=== PATIENT | male | born 1960 | race Caucasian/White ===

== ENCOUNTER 2024-03-28 21:26 | Inpatient (IN) | payer BC, SELFPAY ==
[2024-03-28 18:00] VITALS: BP 180/102
[2024-03-28 18:35] VITALS: BMI 28.8
--- NOTE | 2024-03-28 18:39 | ED.GENMED ---
History of Present Illness
General
Chief Complaint: Chest Pain
Source: patient
Exam Limitations: none
Time Seen by Provider: 03/28/24 18:15
History of Present Illness
History of Present Illness:
This is a 63 year old male that comes in with c/o chest pain. States that yesterday he was out doing yard work and he had chest pain. States that he thought it was from this as it went away. Then today at work he tried to push it a little to see if
anything would happen and nothing happened. Then he went home and he wasn't doing anything but he started with chest pain around 4:30-4:45pm. States that this lasted about 30min and is gone. States that there was no radiation it was just in the
center of his chest. States that his BP was also elevated at 170/100 as he flushed so he checked his BP. Denies any fever, chills, SOB, abd pain, nausea, vomiting, diarrhea, headache, dizziness, urinary burning.
Past History
Past History
ED Past Medical History: HTN; Negative Asthma, Hypercholesterolemia or NIDDM
ED Past Surgical History: None
Social History
Tobacco: Non-smoker
Alcohol: Occasional
Personal:
Living: with family
Review of Systems
Review of Systems
All Other Systems: ROS reviewed and negative except as documented in HPI and ROS
Constitutional: Reports no symptoms; Denies fever or chills
EENT: Reports no symptoms
Respiratory: Reports no symptoms; Denies cough or trouble breathing
Cardiac: Reports no symptoms; Denies chest pain
ABD/GI: Reports no symptoms; Denies abdominal pain, nausea, vomiting or diarrhea
: Reports no symptoms
Musculoskeletal: Reports no symptoms
Skin: Reports no symptoms
Neurological: Reports no symptoms; Denies dizzy or headache
Psychiatric: Reports no symptoms
Phy Exam
General Physical Exam
General Presentation: well appearing and no apparent distress
General age: appears stated age
General Skin: warm and dry
General Habitus: normal
General Mental: alert
General Hydration: appears well hydrated
ENT Exam
ENT Exam: TM's normal, pharynx normal and neck supple
Eye Exam
Eye Exam: EOMI
Cardiovascular Exam
Cardiovascular Exam: regular rate/rhythm, no edema, no murmur and normal peripheral pulses
Pulmonary Exam
Pulmonary Exam: lungs clear, no respiratory distress, no rales, chest non tender, no crackles, no rhonchi, no wheezing and no cough
Gastrointestinal Exam
Gastrointestinal Exam: normal bowel sounds, non tender, soft, no organomegaly, no pulsatile mass and non distended
Musculoskeletal Exam
Musculoskeletal Exam: full ROM and no edema
Skin Exam
Skin Exam: normal color, warm/dry, no rash and no petechia
Psychiatric Exam
Psychiatric Exam: normal mood/affect
Scores
Heart Score for Chest Pain Patients
STEMI patient?: No
History: Moderately Suspicious
ECG: Significant ST-Depression
Age: >45 - <65 years
Risk Factors: 1 or 2 Risk Factors
Troponin: >/= 3 x Normal Limit
Heart Score for Chest Pain Patients: 7
Heart Score Risk: 72.7 % MACE over next 6 weeks
Course
Orders/Labs/Results
Orders:
Orders
03/28/24 17:56
Electrocardiogram (*1) Urgent
Reason for Study: Chest Pain
EKG- Treatment ONCE
03/28/24 18:04
Electrocardiogram (*1) Urgent
Reason for Study: Chest Pain
03/28/24 18:05
EKG- Treatment ONCE
03/28/24 18:36
Complete Blood Count/With Diff Urgent
Comprehensive Metabolic Panel Urgent
Troponin I Urgent
03/28/24 18:39
Pantoprazole [Protonix IV] 40 mg IV NOW STA
CR Chest - 2 Views Urgent
Comment:
Reason For Exam: Chest pain
03/28/24 18:46
EKG- Treatment ONCE
03/28/24 21:14
Admit/Transfer Patient As Directed
Co-Sign Provider:
Level of Care: Inpatient admission
Assign to:: IVU
Physician / Group: júnior
Diagnosis: NSTEMI
Reason for Hospitalization: NSTEMI
Expected length of stay greater than two midnights?: Yes
ELOS- Estimated Length of Stay in days: 2
I certify the patient meets the requirements for IP care: Yes
Code Status As Directed
Resuscitation Status: Full Code
PRN Pain Medication Management As Directed
May give lesser potent ordered pain med per pt: Yes
preference::
Protocol:: Medication orders for pain may be administered in a
manner that supports deferring to patient preference
when the pt is:
- Requesting an ordered lesser potent pain medication.
Least to most potent pain medications are defined
as: acetaminophen < NSAID < tramadol < opioids
(morphine, oxycodone, hydromorphone).
- Requesting a lesser dose of the same medication IF
ORDERED.
- Requesting a less intrusive route of administration
if both routes are prescribed by the provider (PO <
IV).
03/28/24 21:17
Heparin 4,000 units IV NOW STA
Heparin Protocol- PTT Orders As Directed
PTT per Heparin protocol: -Obtain CBC and baseline PTT - if not already collected.
-Obtain PTT 6 hours from start of infusion. Then, every 6 hours until 2 consecutive
PTT's are therapeutic. Then, PTT Daily.
-With each rate change, obtain PTT every 6 hours until 2 consecutive PTT's are
therapeutic. Then, PTT Daily.
Notify MD As Directed
Notify physician if: PTT is greater than or equal to 200.
03/28/24 21:30
Heparin 13253 Units/250 ml 25,000 units in 250 ml IV PER PROTOCOL
Weight to be used for heparin protocol in kilograms (kg):: 83.461
Protocol:: Cardiac Tx/Acute Coronary
PTT Goal Range to be used:: PTT 73 to 111 seconds
Order type:: Initial
INITIAL Infusion Dose (UNITS/KG/hr) & then follow protocol:: 15 units/kg/hr
Infusion Dose in UNITS/hr & then follow protocol (UNITS/hr):: 1,250
INFUSION RATE in mL/hr & then follow protocol (mL/hr):: 12.5
PTT less than or equal to 64 seconds:: Increase rate by 200 units/hr (+ 2 mL/hr)
PTT 64.1 to 72.9 seconds:: Increase rate by 100 units/hr (+ 1 mL/hr)
PTT 73 to 111 seconds:: Target Range. No change in rate.
PTT 111.1 to 130.9 seconds:: Decrease rate by 100 units/hr (- 1 mL/hr)
PTT 131 to 199.9 seconds:: HOLD for 1 hr. Then decrease rate by 200 units/hr (- 2 mL/hr)
PTT greater than or equal to 200 seconds:: HOLD for 2 hrs & Notify Provider. Then decrease by 200 units/hr (-
2 mL/hr)
Lab follow-up:: Each change, PTT q6h until 2 consecutive are therapeutic. Then PTT
daily.
03/28/24 21:35
Electrocardiogram (*1) Urgent
Reason for Study: Chest Pain
03/28/24 21:36
Complete Blood Count/No Diff Urgent
Comment: Obtain baseline before beginning heparin infusion if not already collected
PTT Urgent
Comment: Obtain baseline before beginning heparin infusion if not already collected
Troponin I Urgent
03/30/24 06:00
Complete Blood Count/No Diff Q2D
Comment: Notify MD if platelet count is <130,000 or decreases by 50% from baseline
04/01/24 06:00
Complete Blood Count/No Diff Q2D
Comment: Notify MD if platelet count is <130,000 or decreases by 50% from baseline
04/03/24 06:00
Complete Blood Count/No Diff Q2D
Comment: Notify MD if platelet count is <130,000 or decreases by 50% from baseline
04/05/24 06:00
Complete Blood Count/No Diff Q2D
Comment: Notify MD if platelet count is <130,000 or decreases by 50% from baseline
04/07/24 06:00
Complete Blood Count/No Diff Q2D
Comment: Notify MD if platelet count is <130,000 or decreases by 50% from baseline
04/09/24 06:00
Complete Blood Count/No Diff Q2D
Comment: Notify MD if platelet count is <130,000 or decreases by 50% from baseline
04/11/24 06:00
Complete Blood Count/No Diff Q2D
Comment: Notify MD if platelet count is <130,000 or decreases by 50% from baseline
04/13/24 06:00
Complete Blood Count/No Diff Q2D
Comment: Notify MD if platelet count is <130,000 or decreases by 50% from baseline
Abnormal Lab Results
03/28/24
18:36
MPV 11.7 H fL
(7.4-10.4)
Glucose 119 H mg/dl
(70-99)
Troponin I 0.531 H* ng/ml
03/28/24 18:36
03/28/24 18:36
Hyperglycemia, Troponin 0.531
Vital Signs
Initial and Last Documented VS:
Initial Vital Signs
Temp Pulse Resp BP Pulse Ox
98.0 F 80 18 180/102 99
03/28/24 18:00 03/28/24 18:00 03/28/24 18:00 03/28/24 18:00 03/28/24 18:00
Last Documented Vital Signs
Temp Pulse Resp BP Pulse Ox
98.0 F 64 19 159/88 98
03/28/24 18:00 03/28/24 20:00 03/28/24 20:00 03/28/24 19:23 03/28/24 20:00
MDM/Problems Addressed
Differential Diagnosis Includes:
GERD, Coronary syndrome, Musculoskeletal
MDM/Problems Addressed:
This is a 63 year old male that comes in with c/o chest pain. States that he had chest pain after doing yard work yesterday that went away and then it started tonight after he got home and wasn't doing anything
will check labs, Chest x-ray.
Back into see patient. Explained that his Troponin is elevated. Patient will be admitted. Hospitalist notified. Patient remains pain free at this time.
Repeat ECG: Rate 66, NSR, Normal axis. Normal QRS, Negative for ischemia. Checked by Dr. Montgomery.
Chronic conditions affecting care:
NA
Acute Exacerbation and/or Progression of Chronic Illness:
NA
*Radiology
Radiology exam reviewed: preliminary read by ED provider (Chest-Negative for active disease)
*Pulse Oximetry
Patient hypoxic: no
*EKG
Interpreted by ED Provider?: Yes
Heart Rate: 71
Rate: normal
Rhythm: sinus
[place]: normal axis
Interval: normal interval
QRS Pattern: normal QRS
Ischemia: non-specific ST changes (V3, V4, V5, V6)
*Deputy Jailer Interpretation
Rate: normal
Heart Rate: 72
Rhythm: sinus
*Critical Care Note
Total Time (30-74mins, 75-104mins- exclusive of procedures): Not Applicable
ED Attending Note
-
Portions of this chart may have been created with voice recognition software.� Occasional wrong word or��sound alike� substitutions may have occurred due to the inherent limitations of voice recognition software.
Discharge Plan
Departure
Patient Disposition: Admit
Date of Disposition: 03/28/24
Time of Disposition: 20:28
Admit to: Telemetry
Presentation/result/management discussed w/ accepting MD/DO: Hospitalist
Patient with high blood pressure during this ER visit?: Yes
Condition: Good
Covid-19: Not Applicable
Discharge Problem:
Chest pain, Elevated troponin
Interventions
Interventions:
*Risk Screen - Suicide Last Done: 03/28/24 18:02
*General Assessment Last Done: 03/28/24 18:02
*Neglect/Abuse Screening Last Done: 03/28/24 18:02
*ED COVID-19 Vaccine History Last Done: 03/28/24 18:39
ED- Cardiac Assessment Last Done: 03/28/24 18:38
[2024-03-28 18:49] LABS: % Basophils 0.7 % (0-2); % Eosinophils 1.2 % (0-6); % Immature Granulocytes 0.4 % (0-0.5); % Lymphocytes 21.2 % (20.5-51.1); % Monocytes 8.6 % (1.7-9.3); % Neutrophils 67.9 % (42.2-75.2); Absolute Basophils 0.1 10^3/uL (0-0.2); Absolute Eosinophils 0.1 10^3/uL (0-0.7); Absolute Lymphocytes 1.5 10^3/uL (1.2-3.4); Absolute Monocytes 0.6 10^3/uL (0.1-0.6); Absolute Neutrophils 4.7 10^3/uL (1.4-6.5); Hematocrit 42.3 % (39.0-52.0); Hemoglobin 14.5 g/dL (13.0-18.0); Mean Corp Hgb Conc. 34.3 g/dL (33.0-37.0); Mean Corpuscular Volume 87.6 fL (80.0-94.0); Mean Platelet Volume 11.7 fL (7.4-10.4); Nucleated Red Blood Cells % 0 % (-); Platelet Count 132 10^3/uL (130-400); Red Blood Cell Count 4.83 10^6/uL (4.70-6.10); Red Cell Dist. Width 13.1 % (11.5-14.5); White Blood Cell Count 6.9 10^3/uL (4.8-10.8)
[2024-03-28 18:59] LABS: ALT (SGPT) 27 U/L (0-50); AST (SGOT) 35 U/L (17-59); Albumin 4.8 g/dl (3.5-5.0); Alkaline Phosphatase 55 U/L (38-126); Blood Urea Nitrogen 17 mg/dl (9-20); Calcium 9.6 mg/dl (8.4-10.2); Carbon Dioxide 28 mmol/L (22-30); Chloride 101 mmol/L (98-107); Estimated Creatinine Clearance 87 ml/min; Glucose 119 mg/dl (70-99); Sodium 142 mmol/L (135-145); Total Bilirubin 0.8 mg/dl (0.2-1.3); Total Protein 7.4 g/dl (6.3-8.2); eGFR > 60.00
[2024-03-28 19:12] LABS: Troponin I 0.531 ng/ml
[2024-03-28] MEDS: PROTONIX IV 40 MG IV (19:13)
[2024-03-28 19:23] VITALS: BP 159/88
--- NOTE | 2024-03-28 21:23 | HPS.HSE ---
Addendum entered and electronically signed by Pilar Rivera MD 03/28/24 21:26:
EKG shows nonspecific lateral ST-T wave changes. Chest x-ray pending.
Original Note:
Family Physician
-
Family Physician: James Hwang
Chief Complaint
-
chest pain
History of Present Illness
63-year-old male past medical history of hypertension presenting with chest pain. He was out doing yard work and developed chest pain described as aching after he finished which later resolved. He went home and started having chest pain again
around 4:30 PM. This lasted 30 minutes and resolved. He denies any radiation of the pain. Blood pressure is elevated 170/100. Denies any fevers or chills, shortness of breath, abdominal pain, nausea vomiting, diarrhea, headache, dizziness or
urinary symptoms, or sweating.
His blood pressure is normally controlled.
He denies any cardiac history.
He drinks alcohol occasionally. He denies smoking.
His sister had lupus and had a heart attack. His mother had A-fib.
Medical History
Past Medical History
Past Medical History: Reports Other (hypertension)
Past Surgical History: Reports None
Social History
Tobacco: Non-smoker
Alcohol: Occasional
Drug: None
Family History
Family History: Other (His sister had lupus and had a heart attack. His mother had A-fib.)
Allergies / Home Medications
Allergies reflects when Allergies were last updated in 591wed.
Home Medications with original date entered in 591wed
Allergy/Medication List:
Allergies
Allergy/AdvReac Type Severity Reaction Status Date / Time
cephalexin [From Keflex] Allergy Rash Verified 03/28/24 18:02
Home Medications
celecoxib 100 mg capsule 100 mg PO DAILY 03/28/24
losartan 100 mg tablet 100 mg PO DAILY 03/28/24
Review of Systems
-
History Source: Patient
A 12 point ROS was completed and negative except as noted: Yes
Constitutional: Reports No Symptoms
EENT: Reports No Symptoms
Respiratory: Reports No Symptoms
Cardiac: Reports See HPI
Abdomen/GI: Reports No Symptoms
: Reports No Symptoms
Musculoskeletal: Reports No Symptoms
Skin: Reports No Symptoms
Neurological: Reports No Symptoms
Endocrine: Reports No Symptoms
Hematologic/Lymphatic: Reports No Symptoms
Psych: Reports No Symptoms
Physical Exam
Vital Signs
Vital Signs
Temp Pulse Resp BP Pulse Ox
98.0 F 64 19 159/88 98
03/28/24 18:00 03/28/24 20:00 03/28/24 20:00 03/28/24 19:23 03/28/24 20:00
Physical Exam
General: Well Developed, Well Nourished and No Apparent Distress
HEENT: NormoCephalic, Moist mucous membranes and Atraumatic
Respiratory: Clear
Cardiac: S1/S2 and Regular Rhythm; No Murmur or Rub
GI: Soft, Non Tender, Non Distended and Normal Bowel Sounds; No Organomegaly
Rectal: Deferred by Provider
Musculoskeletal: No Clubbing, No Cyanosis and No Edema
Skin: No Rash
Neuro: Nonfocal/grossly intact
Laboratory Results
-
03/28/24 18:36
Laboratory Results
Total Bilirubin 0.8 mg/dl (0.2-1.3) 03/28/24 18:36
AST 35 U/L (17-59) 03/28/24 18:36
ALT 27 U/L (0-50) 03/28/24 18:36
Alkaline Phosphatase 55 U/L (38-126) 03/28/24 18:36
Troponin I 0.531 ng/ml H* 03/28/24 18:36
Data Reviewed
-
Lab Data: Labs Reviewed by me
Old Records: Reviewed
Impression/Plan
-
IMPRESSION:
PLAN:
# NSTEMI
# Hypertensive emergency
-No chest pain currently
-Blood pressure improving spontaneously
-Troponin of 0.5, continue to trend
-Patient already took aspirin 325 mg before he came in
-Heparin drip
-Check echo
-Check A1c and lipid panel
-Start atorvastatin 40 mg
-N.p.o. past midnight for potential catheterization tomorrow
-Cardiology consulted
Essential hypertension
-Continue losartan
Full code
DVT prophylaxis�heparin drip
N.p.o. past midnight
[2024-03-28 22:02] LABS: APTT 30.6 Sec (23.4-35.0)
[2024-03-28 22:10] LABS: Hematocrit 42.2 % (39.0-52.0); Hemoglobin 14.4 g/dL (13.0-18.0); Mean Corp Hgb Conc. 34.1 g/dL (33.0-37.0); Mean Corpuscular Hgb 29.7 pg (27.0-31.0); Mean Platelet Volume 11.4 fL (7.4-10.4); Platelet Count 142 10^3/uL (130-400); Red Blood Cell Count 4.85 10^6/uL (4.70-6.10); Red Cell Dist. Width 13.1 % (11.5-14.5); White Blood Cell Count 7.9 10^3/uL (4.8-10.8)
[2024-03-28 22:18] LABS: Troponin I 0.967 ng/ml
[2024-03-28] MEDS: HEPARIN 4000 UNITS IV (22:36)
[2024-03-28] MEDS: HEPARIN 25000 UNITS/250 ML IV (22:37)
[2024-03-28 22:41] VITALS: BP 146/99
[2024-03-28 23:45] VITALS: BP 143/99
[2024-03-29] VITALS (18 sets, daily range): BP systolic 51–158; BP diastolic 15–99; BMI 29.0
--- NOTE | 2024-03-29 03:20 | PTCARENOTE ---
Received pt from ER into 2249. Pt is AAOx3 SR on the monitor. VSS Heparin gtt infusing @1250 units/HR. Pt instructed on IVU policies and call armstrong within reach. Pt verbalized understanding.
[2024-03-29 05:14] LABS: % Basophils 0.6 % (0-2); % Eosinophils 1.9 % (0-6); % Immature Granulocytes 0.4 % (0-0.5); % Lymphocytes 32.5 % (20.5-51.1); % Monocytes 9.5 % (1.7-9.3); % Neutrophils 55.1 % (42.2-75.2); Absolute Eosinophils 0.1 10^3/uL (0-0.7); Absolute Lymphocytes 2.2 10^3/uL (1.2-3.4); Absolute Monocytes 0.6 10^3/uL (0.1-0.6); Absolute Neutrophils 3.7 10^3/uL (1.4-6.5); Hematocrit 43.7 % (39.0-52.0); Hemoglobin 14.8 g/dL (13.0-18.0); Mean Corp Hgb Conc. 33.9 g/dL (33.0-37.0); Mean Corpuscular Hgb 29.8 pg (27.0-31.0); Mean Corpuscular Volume 87.9 fL (80.0-94.0); Mean Platelet Volume 11.9 fL (7.4-10.4); Nucleated Red Blood Cells % 0 % (-); Platelet Count 133 10^3/uL (130-400); Red Blood Cell Count 4.97 10^6/uL (4.70-6.10); Red Cell Dist. Width 13.1 % (11.5-14.5); White Blood Cell Count 6.7 10^3/uL (4.8-10.8)
[2024-03-29 05:21] LABS: APTT 86.6 Sec (23.4-35.0)
[2024-03-29 05:47] LABS: ALT (SGPT) 26 U/L (0-50); AST (SGOT) 42 U/L (17-59); Albumin 4.6 g/dl (3.5-5.0); Alkaline Phosphatase 66 U/L (38-126); Blood Urea Nitrogen 16 mg/dl (9-20); Calcium 9.6 mg/dl (8.4-10.2); Carbon Dioxide 27 mmol/L (22-30); Chloride 105 mmol/L (98-107); Estimated Creatinine Clearance 100 ml/min; Glucose 97 mg/dl (70-99); HDL Cholesterol 54 mg/dl; LDL Cholesterol, Calculated 155 mg/dl; Potassium 3.9 mmol/L (3.5-5.1); Sodium 142 mmol/L (135-145); Total Cholesterol 228 mg/dl (50-199); Total Protein 7.1 g/dl (6.3-8.2); Triglyceride 98 mg/dl (10-149); Very Low Density Lipoprotein 19 mg/dl (0-30); eGFR > 60.00
[2024-03-29] MEDS: LOW STRENGTH ASPIRIN 81 MG PO (07:42)
[2024-03-29] MEDS: COZAAR 100 MG PO (07:42)
--- NOTE | 2024-03-29 08:44 | CON.CAR ---
Addendum entered and electronically signed by Nii Kinsey MD 03/29/24 10:03:
I saw and examined the patient.
The OUTSIDE MEDICAL SALES REPRESENTATIVE or PA's note was reviewed and I agree with the note.
Comment: General: Well developed, well nourished in NAD.
Neck: Supple, no JVD, HJR, carotids +2 B/L, no bruits bilaterally.
Heart: Non displaced PMI, RRR, no murmurs, No S3, S4, no rubs.
Lungs: Clear to auscultation bilaterally, no wheeze, rhonchi, rubs bilaterally,
normal expiratory phase.
Abdomen: Normal bowel sounds, soft, non-tender, non-distended.
Extremities: No clubbing, cyanosis or edema bilaterally.
Neuro: Grossly nonfocal, awake, alert and oriented x3.
Marshall has a history of tension, anemia. He presented with chest pain and ruled in for non-STEMI with troponin of 2.8. He initially had chest discomfort on March 27. He had recurrent chest discomfort last night and came to the ER. He is denies
chest pain at present.
Will plan on cardiac catheterization later today. Continue IV heparin. Start Lopressor. Discussed cardiac catheterization and stenting in detail with patient and he agrees.
Original Note:
Consultation
Consultation Request
Date/Time Consultation Requested: 03/29/24
Date/Time Consultation Performed: 03/29/24
Requesting Provider: Dr. Almaraz
Performing Provider: Dr. Kinsey
Reason for Consultation: Chest pain, [place], NSTEMI
Medical History
-
History of Present Illness:
[facility] with resting chest pain and was admitted with [facility] and cardiology has been consulted. Patient was doing yard work and pulled on a pull start repeatedly and got tired, when he went inside to take a break he started with
substernal chest pain that lasted for about 15 minutes. No radiation of pain and no SOB, but he was worried and so he took an aspirin. 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
chest pain. He returned home and while seated at about 5 PM he started with the same substernal chest pain and had his bring [facility]. ECG abnormal with inferolateral ST depressions. Chest pain resolved prior to arrival to ER. Patient was
started on Heparin gtt and admitted. Troponin peaked at 2.75 overnight but he has remained pain free.
PMH:
HTN
Hyperlipidemia
FH premature CAD
FH SLE and [place]
Past Medical History
Past Medical History: Other (in HPI)
Past Surgical History: None
Social History
Tobacco: Non-Smoker
Alcohol: Occasional
Drug: None
Personal:
Living: With Family
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
Family History
Family History: Other (father at 62 with [place] and [place] syndrome, mother from COPD, sister with SLE and h/o DC)
Allergies / Home Medications
Allergy/AdvReac Type Severity Reaction Status Date / Time
cephalexin [From Keflex] Allergy Rash Verified 03/28/24 18:02
�Medication �Instructions �Recorded �Confirmed �Type
celecoxib 100 mg capsule 100 mg PO DAILY 03/28/24 03/28/24 History
losartan 100 mg tablet 100 mg PO DAILY 03/28/24 03/28/24 History
Review of Systems
-
History Source: Patient
All other systems: Negative unless noted
Physical Exam
Vital Signs
Temp Pulse Resp BP Pulse Ox
98.2 F 61 16 143/99 98
03/29/24 07:41 03/29/24 00:01 03/29/24 07:41 03/29/24 00:00 03/29/24 07:41
GEN: NAD. AAOx3
HEENT: EOMI, MMM
LUNGS: RA. CTA B/L, no wheezes or rales
CV: Reg, S1/S2, no murmur
ABD: soft, BS+, NT, ND
EXT: No clubbing, cyanosis, lesions or edema B/L
NEURO: Gross non-focal
SKIN: Warm, dry and pink. No rash
Lab Results
03/29/24 04:28
03/29/24 04:28
Troponin I Cancelled 03/29/24 13:23
Impression / Plan
-
PCP: Dr. James Hwang
Cardiology: None prior to admission
Impression:
Admitted with [facility] 03/28/24
NSTEMI, peak Troponin 2.75
HTN
Hyperlipidemia
Hyperglycemia
FH premature CAD
FH SLE and [place]
Echo 03/29/24: Study pending
Plan:
-[facility] night with resting chest pain and was admitted with [facility] and cardiology has been consulted. Patient was doing yard work and pulled on a pull start repeatedly and got tired, when he went inside to take a break he started
with substernal chest pain that lasted for about 15 minutes. No radiation of pain and no SOB, but he was worried and so he took an aspirin. 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
no chest pain. He returned home and while seated at about 5 PM he started with the same substernal chest pain and had his bring [facility]. ECG abnormal with inferolateral ST depressions. Chest pain resolved prior to arrival to ER. Patient was
started on Heparin gtt and admitted. Troponin peaked at 2.75 overnight but he has remained pain free.
-ECG and tele reviewed by me. ECG concerning for inferolateral ST depression on admission that have improved and normalized overnight.
-Cont Heparin gtt
-Discussed with patient proceeding with cardiac cath and he is in agreement. Offered to have patient call his while I was in the room with him so that we could all discuss together and he declined.
-Troponin peaked at 2.75. Check echo.
-New to aspirin 81 mg daily
-LDL 155, new to atorvastatin 40 mg daily
-Outpatient dose of losartan 100 mg daily continued
-BP 150/99 and HR 70, will add Lopressor 25 mg q 6 hours for now
-Cardiac rehab consulted
-Check HgbA1c
[2024-03-29] MEDS: LOPRESSOR 25 MG PO ×2 (09:58→13:25)
[2024-03-29 11:11] LABS: APTT 77.9 Sec (23.4-35.0)
--- NOTE | 2024-03-29 11:54 | CM ---
Chart reviewed. Patient is independent of ADLS, lives with his in a [address], [address], 0 DME. Plan is for the patient to return home. CM to follow
[2024-03-29] MEDS: TYLENOL 650 MG PO (13:38)
--- NOTE | 2024-03-29 14:36 | W.PN.HOSP.TC ---
Today's Communication/Plan
-
Cardiac cath today
Assessment / Plan
Assessment / Plan
Assessment/plan
# NSTEMI
# Hypertensive emergency
-No chest pain currently
-Blood pressure improving spontaneously
-Troponin of 0.5, continue to trend
-Patient already took aspirin 325 mg before he came in
-Heparin drip
-Check echo
-Check A1c and lipid panel
-Start atorvastatin 40 mg
-N.p.o. for catheterization today.
-Cardiology consulted
Essential hypertension
-Continue losartan
CODE STATUS: Full code
DVT prophylaxis: Heparin drip
Diet: N.p.o.
I spent 65 minutes giving direct care to the patient including chart review, talking to consultants, talking to treatment team, family communication.
Anticipated Discharge: Within 24 hours
Subjective/Interval History
-
Date of Service: March 29, 2024
Patient seen and examined at bedside, denies any chest pain or shortness of breath, no abdominal pain, no nausea, no vomiting, no diarrhea or constipation. Plan for cardiac cath today
Objective Data
-
Labs:
Laboratory Results
03/29/24 03/29/24
04:28 10:51
WBC 6.7
Hgb 14.8
Hct 43.7
Plt Count 133
APTT 86.6 H 77.9 H
Sodium 142
Potassium 3.9
Chloride 105
Carbon Dioxide 27
BUN 16
Creatinine 0.7
Glucose 97
Calcium 9.6
Total Bilirubin 1.0
AST 42
ALT 26
Alkaline Phosphatase 66
Vital Signs:
Vital Signs
Temp Pulse Resp BP Pulse Ox
98.3 F 66 18 158/98 98
03/29/24 10:00 03/29/24 10:45 03/29/24 10:00 03/29/24 10:00 03/29/24 10:00
Physical Exam
-
General: Well Developed, Well Nourished, No Apparent Distress and Comfortable
HEENT: Normocephalic, Atraumatic, Moist Mucous Membranes, No Ptosis, PERRLA and Nose Appears Normal
Respiratory: Clear to Auscultation and Non Labored Respirations
Cardiac: Regular Rhythm and S1/S2
Breast: Deferred by me
GI: Soft, Nontender, Nondistended and Normal Bowel Sounds
Genito-urinary: No Costovertebral Tender
Musculoskeletal: No Clubbing, No Cyanosis and No Edema
Skin: Warm
Neuro: Awake, Alert, Oriented, AO x 3 and No Motor Deficits
Psych: Calm
Data Reviewed
-
Diagnostic Radiology: Image personally visualized and interpreted and Report Reviewed by me
CT Scan: Image personally visualized and interpreted and Report Reviewed by me
Ultrasound: Image personally visualized and interpreted and Report Reviewed by me
MRI: Image personally visualized and interpreted and Report Reviewed by me
Medical Tests (Nuc Med, Echo etc): Image personally visualized and interpreted and Report Reviewed by me
Labs: Labs Reviewed by me
Old Records: Reviewed
--- NOTE | 2024-03-29 15:47 | CM ---
Pricing on Brilinta 90mg BID through the patient's prescription plan is $50. Patient has commercial insurance so he qualifies for the copay card. I place the free 30 day and $5 copay card in the patient's red discharge folder.
--- NOTE | 2024-03-29 16:02 | PTCARENOTE ---
Rec'd pt back from laboratory development technician. Tele- SR. VSS. R radial band on; no bleeding/hematoma noted. Activity restrictions reviewed w/pt. Verbalizes understanding. No c/o pain/discomfort at this time. Currently in bed; call patti w/in reach.
--- NOTE | 2024-03-29 16:08 | ITS.CL.CATH ---
Rn Picu - Catheterization
Cardiac Catheterization
Procedure Report:
LEFT HEART CATHETERIZATION AND CORONARY INTERVENTION
Date of Procedure: March 29, 2024
Referring: Nii Kinsey
PROCEDURES:
1. Left heart catheterization, coronary angiogram.
2. Ultrasound-guided access.
3. Successful percutaneous coronary artery intervention of a hazy, thrombotic 80-85% mid OM 1 stenosis with one 3.0 x 22 mm Medtronic Thousandsticks frontier drug-eluting stent, postdilated with a 3.0 x 20 mm NC balloon at 18 karol with an excellent
angiographic result.
INDICATION: NSTEMI
ACCESS: Right radial artery, 6 Sudanese sheath, under ultrasound guidance
HEMODYNAMICS : (mmHg)
AO (s/d) : 152/85
LV (s/d) : 152/10
LVEDP : 20
CORONARY FINDINGS
DOMINANCE: Right
LEFT MAIN: The left main artery is a large-caliber, short vessel which gives rise to the left anterior descending artery and the left circumflex artery. There is minimal luminal irregularities.
LEFT ANTERIOR DESCENDING: The left anterior descending artery is a medium to large caliber vessel which gives rise to 2 small to medium caliber diagonal branches as it courses through the anterior interventricular groove and wraps around the apex.
There is diffuse mild to moderate plaque in the proximal to mid LAD. The 1 has a eccentric 40 to 50% ostial stenosis in D2 has a 50% ostial stenosis.
CIRCUMFLEX: The left circumflex artery is a medium caliber vessel which gives rise to 1 major branching obtuse marginal branch which has a hazy, thrombotic 80 to 85% stenosis in the midportion which is thought to be the culprit of presenting acute
coronary syndrome with intervention as noted below. Otherwise there is diffuse mild to moderate disease in the proximal OM1.
RIGHT CORONARY ARTERY: The right coronary artery is a large-caliber, dominant vessel which gives rise to the right posterior descending artery and a small right posterolateral system. There is minimal luminal irregularities.
CORONARY INTERVENTION: Decision was made to proceed with percutaneous intervention to the culprit lesion in the midportion of OM1. Additional heparin was given to maintain a therapeutic ACT throughout the case. The left coronary artery was
selectively engaged using a 6 Sudanese EBU 3.5 guide catheter. We used a 190 cm 0.014' run-through coronary wire and carefully navigated this across the lesion into the distal vessel. We predilated the lesion using a 3.0 x 15 mm semi-compliant
balloon with full expansion. We subsequently stented the lesion using a 3.0 x 22 mm Medtronic Yasir frontier drug-eluting stent and postdilated with a 3.0 x 20 mm NC balloon at 18 karol with an excellent angiographic result. Patient was loaded with
180 mg of Brilinta at the end of the case. He tolerated the procedure well with no acute complications.
SEDATION: 64 minutes of procedural sedation was utilized. An independent medical equipment repairer was present to assist with and help manage the patient's level of consciousness and physiologic status.
RADIATION SUMMARY: Fluoro Time (min): 7.8, Dose (mGy): 535.4, DAP (Gy.cm2) : 31.3
Closure Device: Vascular band over the right radial artery, 12 cc of air.
CONCLUSIONS
1. Successful percutaneous coronary artery intervention of a hazy, thrombotic 80-85% mid OM 1 stenosis with one 3.0 x 22 mm Medtronic Yasir frontier drug-eluting stent, postdilated with a 3.0 x 20 mm NC balloon at 18 karol with an excellent
angiographic result.
2. Mild to moderate coronary artery disease otherwise.
3. Mildly elevated LVEDP at 20 mmHg.
RECOMMENDATIONS
1. Uninterrupted dual antiplatelet therapy in the setting of ACS with daily baby aspirin and Brilinta 90 mg twice daily along with high intensity statin and beta-mariella as tolerated.
2. Wean radial band per protocol.
3. Full echocardiogram to assess biventricular function and rule out any significant valvular abnormalities.
4. Aggressive management of cardiovascular risk factors.
5. Eventual referral for outpatient cardiac rehab.
Copy to: Nii Kinsey MD
Carolee Kc MD, FAC, [facility]
[2024-03-29] MEDS: LIPITOR 80 MG PO (16:54)
[2024-03-29] MEDS: NORVASC 2.5 MG PO (16:54)
--- NOTE | 2024-03-30 01:56 | PTCARENOTE ---
Assumed care of the pt @ 1900. SB-SR on the monitor VSS Rt Radial band removed and dressing applied. c/d/i. No bleeding no hematoma. Pt reminded of activity restrictions to right arm. Pt verbalized understanding. Denies pain Independent in the room.
[2024-03-30 04:50] VITALS: BP 125/79
[2024-03-30 06:04] LABS: Blood Urea Nitrogen 17 mg/dl (9-20); Calcium 9.4 mg/dl (8.4-10.2); Carbon Dioxide 24 mmol/L (22-30); Chloride 105 mmol/L (98-107); Estimated Creatinine Clearance 100 ml/min; Glucose 97 mg/dl (70-99); Potassium 3.9 mmol/L (3.5-5.1); Sodium 140 mmol/L (135-145); eGFR > 60.00
[2024-03-30 06:10] LABS: Hematocrit 42.3 % (39.0-52.0); Hemoglobin 14.5 g/dL (13.0-18.0); Mean Corp Hgb Conc. 34.3 g/dL (33.0-37.0); Mean Corpuscular Hgb 30.2 pg (27.0-31.0); Mean Corpuscular Volume 88.1 fL (80.0-94.0); Mean Platelet Volume 11.6 fL (7.4-10.4); Platelet Count 139 10^3/uL (130-400); Red Cell Dist. Width 13.2 % (11.5-14.5); White Blood Cell Count 8.8 10^3/uL (4.8-10.8)
[2024-03-30 07:02] VITALS: BP 127/81
[2024-03-30] MEDS: TOPROL XL 25 MG PO (07:54)
[2024-03-30] MEDS: BRILINTA 90 MG PO (07:54)
[2024-03-30] MEDS: NORVASC 2.5 MG PO (07:54)
[2024-03-30] MEDS: LOW STRENGTH ASPIRIN 81 MG PO (07:55)
[2024-03-30] MEDS: COZAAR 100 MG PO (07:55)
[2024-03-30 08:38] LABS: Glycohemoglobin (HgbA1c) 5.2 % (4.0-5.6)
[2024-03-30 08:58] LABS: ACT-LR - POC 300 Seconds (116-155)
[2024-03-30 08:58] LABS: ACT-LR - POC 279 Seconds (116-155)
--- NOTE | 2024-03-30 09:46 | W.PN.CARDCBS ---
Addendum entered and electronically signed by Nii Kinsey MD 03/30/24 10:12:
I saw and examined the patient.
The PLUMBER or PA's note was reviewed and I agree with the note.
Comment: General: Well developed, well nourished in NAD.
Neck: Supple, no JVD, HJR, carotids +2 B/L, no bruits bilaterally.
Heart: Non displaced PMI, RRR, no murmurs, No S3, S4, no rubs.
Lungs: Clear to auscultation bilaterally, no wheeze, rhonchi, rubs bilaterally,
normal expiratory phase.
Extremities: No clubbing, cyanosis or edema bilaterally.
Neuro: Grossly nonfocal, awake, alert and oriented x3.
Stable cardiology status for discharge. Patient wishes to follow-up with [facility].
Original Note:
Today's Communication / Plan
-
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
E-scribed Rx for Brilinta, Toprol XL and amlodipine
52 min face to face and in coordination of care
Impression / Plan
-
PCP: Dr. James Hwang
Cardiology: None prior to admission
Impression:
Admitted with [facility] 03/28/24
NSTEMI, peak Troponin 2.75
CAD s/p 3.0 mm Yasir WAYNE to mid OM-1 03/29/24
HTN
Hyperlipidemia
Hyperglycemia with normal HgbA1c 5.2%
FH premature CAD
FH SLE and [place]
Echo 03/29/24: EF 50 to 55%, normal diastolic function, moderate MR, aortic sclerosis without stenosis, trace aortic regurgitation, mildly dilated aortic root at 3.8 cm in the ascending aorta
Plan:
-Patient had a WAYNE to the mid-OM-1 and feels well. No chest pain overnight. Tolerating DAPT with aspirin and Brilinta.
-Appreciate help of CM, patient can use the co-pay card for $5/mo
-ECG from 03/30/24 AM reviewed by me shows sinus bradycardia without ST changes, QTc 469 ms
-New to Toprol XL 25 mg daily
-Outpatient dose of losartan 100 mg daily continued
-New to amlodipine 2.5 mg daily
-LDL 155, new to atorvastatin 40 mg daily
-Cardiac rehab consulted and he would be interested in attending at
-HgbA1c normal at 5.2%
-Stable for d/c to home. Patient will follow up with Dr. Goldberg at the recommendation of his friend.
HPI: Patient came to [facility] last night with resting chest pain and was admitted with [facility] and cardiology has been consulted. Patient was doing yard work and pulled on a pull start repeatedly and got tired, when he went inside to take a break he started
with substernal chest pain that lasted for about 15 minutes. No radiation of pain and no SOB, but he was worried and so he took an aspirin. 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
no chest pain. He returned home and while seated at about 5 PM he started with the same substernal chest pain and had his bring him to [facility]. ECG abnormal with inferolateral ST depressions. Chest pain resolved prior to arrival to ER. Patient was
started on Heparin gtt and admitted. Troponin peaked at 2.75 overnight but he has remained pain free.
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
Subjective
Date of Service: March 30, 2024
Feels well and no chest pain overnight
Objective
Labs:
03/30/24 05:07
03/30/24 05:08
Labs
Hgb 14.5 g/dL (13.0-18.0) 03/30/24 05:07
Hct 42.3 % (39.0-52.0) 03/30/24 05:07
Plt Count 139 10^3/uL (130-400) 03/30/24 05:07
APTT 77.9 Sec (23.4-35.0) H 03/29/24 10:51
Sodium 140 mmol/L (135-145) 03/30/24 05:08
Potassium 3.9 mmol/L (3.5-5.1) 03/30/24 05:08
BUN 17 mg/dl (9-20) 03/30/24 05:08
Creatinine 0.7 mg/dL (0.7-1.3) 03/30/24 05:08
Glucose 97 mg/dl (70-99) 03/30/24 05:08
Troponins
03/28/24 03/28/24 03/29/24
18:36 21:36 04:28
Troponin I 0.531 H* 0.967 H* D 2.750 H* D
03/29/24 03/29/24 03/29/24
04:28 10:51 13:23
Troponin I 2.630 H* 2.500 H* Cancelled
Vital Signs and I&O:
Vital Signs
Temp Pulse Resp BP Pulse Ox
98.6 F 69 14 127/81 96
03/30/24 07:02 03/30/24 07:15 03/30/24 04:53 03/30/24 07:02 03/30/24 07:02
Vital Signs
Temp Pulse Resp BP Pulse Ox
98.6 F 69 14 127/81 96
03/30/24 07:02 03/30/24 07:15 03/30/24 04:53 03/30/24 07:02 03/30/24 07:02
Intake & Output
03/28/24 03/29/24 03/30/24 03/31/24
06:59 06:59 06:59 06:59
Intake Total 400 / 400 400 / 400
Balance 400 / 400 400 / 400
Physical Exam
Physical Exam
GEN: NAD. AAOx3
HEENT: EOMI, MMM
LUNGS: RA. No audible wheeze
CV: SR on tele
ABD: ND
EXT: Right radial without hematoma or ecchymosis. No edema B/L
NEURO: Gross non-focal
SKIN: No rash
--- NOTE | 2024-03-30 10:23 | W.PN.HOSP.TC ---
Today's Communication/Plan
-
Discharge home today
Assessment / Plan
Assessment / Plan
Assessment/plan
# NSTEMI s/P stent
# Hypertensive emergency
-No chest pain currently
-Blood pressure improving spontaneously
-Troponin of 0.5, continue to trend
-Patient already took aspirin 325 mg before he came in
-Heparin drip
-Check echo
-Check A1c and lipid panel
-Start atorvastatin 40 mg
-N.p.o. for catheterization today.
-Cardiology consulted
03/30
Patient had a [facility], cleared to discharge home today
Essential hypertension
-Continue losartan
CODE STATUS: Full code
I spent 65 minutes giving direct care to the patient including chart review, talking to consultants, talking to treatment team, family communication.
Anticipated Discharge: Today
Subjective/Interval History
-
Date of Service: March 30, 2024
Patient seen and examined at bedside, denies any chest pain or shortness of breath, no abdominal pain, no nausea, no vomiting, no diarrhea or constipation.
Patient had a WAYNE to the [place] [id number] yesterday, cleared for discharge home today.
Objective Data
-
Labs:
Laboratory Results
03/30/24 03/30/24
05:07 05:08
WBC 8.8
Hgb 14.5
Hct 42.3
Plt Count 139
Sodium 140
Potassium 3.9
Chloride 105
Carbon Dioxide 24
BUN 17
Creatinine 0.7
Glucose 97
Calcium 9.4
Vital Signs:
Vital Signs
Temp Pulse Resp BP Pulse Ox
98.6 F 69 14 127/81 96
03/30/24 07:02 03/30/24 07:15 03/30/24 04:53 03/30/24 07:02 03/30/24 07:02
I&O
03/29/24 03/30/24 03/31/24
06:59 06:59 06:59
Intake Total 400 / 400 400 / 400
Balance 400 / 400 400 / 400
Physical Exam
-
General: Well Developed, Well Nourished, No Apparent Distress and Comfortable
HEENT: Normocephalic, Atraumatic, Moist Mucous Membranes, No Ptosis, PERRLA and Nose Appears Normal
Respiratory: Clear to Auscultation and Non Labored Respirations
Cardiac: Regular Rhythm and S1/S2
Breast: Deferred by me
GI: Soft, Nontender, Nondistended and Normal Bowel Sounds
Genito-urinary: No Costovertebral Tender
Musculoskeletal: No Clubbing, No Cyanosis and No Edema
Skin: Warm
Neuro: Awake, Alert, Oriented, AO x 3 and No Motor Deficits
Psych: Calm
--- NOTE | 2024-03-30 10:25 | W.DCSUMMARY ---
Discharge Summary
Discharge Data
Date of Admission: 03/28/24
Date of Discharge: 03/30/24
-
Pending Results: No
Hospital Course
Patient came to the hospital with chest pain, He was out doing yard work and developed chest pain described as aching after he finished which later resolved. He went home and started having chest pain again around 4:30 PM. This lasted 30 minutes
and resolved.
Came to the ER found to have STEMI.
Started on heparin drip.
Chest pain resolved.
Noted to have elevated blood pressure
-Blood pressure improving spontaneously
-Troponin of 0.5, continue to trend
-Patient already took aspirin 325 mg before he came in
-Heparin drip
-Check echo
-Check A1c and lipid panel
-Start atorvastatin 40 mg
-N.p.o. for catheterization today.
-Cardiology consulted
03/30
Patient had a WAYNE to the mid--, cleared to discharge home today
Essential hypertension
-Continue losartan-added Toprol-XL
Will be discharged home today
Discharge Plan
-
Patient Disposition: Home (Routine Discharge)
Discharge Diagnosis/Procedures: NSTEMI, s/p angioplasty and stent to Obtuse Marginal artery
Diet: Low Cholesterol
Driving Restrictions: No driving for 24 hours
Bathing Restrictions: OK to Shower
Other Services: Cardiac Rehab
Stand Alone Forms: DC Instructions- Cath/EP Lab
Referrals:
James Hwang DO [Family Provider] -
Stephen Goldberg MD [Active] - 04/20/24 4:20 pm
()
Additional Discharge Medication Instructions: -Start taking aspirin 81 mg once a day and Brilinta 90 mg twice a day to help keep your stent open while it heals in place. Do not interrupt aspirin or Brilinta therapy unless directed by cardiology.
-Stop taking Celebrex
Prescriptions:
New
Brilinta 90 mg Tablet
90 mg PO BID Qty: 60 12RF
atorvastatin 80 mg Tablet
80 mg PO QPM Qty: 30 11RF
amlodipine 2.5 mg Tablet
2.5 mg PO DAILY Qty: 30 11RF
aspirin 81 mg Tablet,Chewable
81 mg PO DAILY Qty: 30 0RF
metoprolol succinate 25 mg Tablet Extended Release 24 Hr
25 mg PO DAILY Qty: 30 11RF
Continued
losartan 100 mg Tablet
100 mg PO DAILY
Discontinued
celecoxib 100 mg Capsule
100 mg PO DAILY
Discharge Orders:
Discharge Patient (As Directed); Ordered 03/30/24
Ordered By: Hattie Almaraz
Care Plan Goals
Care Plan Goals:
Problem: Readiness for enhanced knowledge related to diagnosis and treatment plan
Goal: Understand your diagnosis and treatment plan needs, including medications if applicable.
Instructions: Know your diagnosis, underlying causes and treatment plan options, including medications if applicable. Consult with your health care team to learn about your diagnosis and treatment plan, including medications if applicable.
Discharge Date and Time
Print Language: LAO
[2024-03-30 10:45] VITALS: BP 118/76
--- NOTE | 2024-03-30 11:03 | PTCARENOTE ---
Tele and IV removed. Discharge instructions reviewed w/ pt. Verbalizes understanding. Escorted via wheelchair and staff assist. Discharged to home.
== END 2024-03-30 11:02 | disposition home or self-care (01) | DRG 322 ==
LOC: IVU 21:26
PROVIDERS: Clinical Nurse Specialist Family Health; Emergency Medicine; Internal Medicine Interventional Cardiology; Nurse Practitioner Adult Health; ADMITTING PHYSICIAN Hospitalist; ATTENDING PHYSICIAN General Practice; EMERGENCY PHYSICIAN Emergency Medicine; FAMILY PHYSICIAN Family Medicine; OTHER PHYSICIAN Internal Medicine Cardiovascular Disease
PROC: B2111ZZ Fluoroscopy of Multiple Coronary Arteries using Low Osmolar Contrast (ICD-10-PCS; 2024-03-29)
PROC: B2151ZZ Fluoroscopy of Left Heart using Low Osmolar Contrast (ICD-10-PCS; 2024-03-29)
PROC: 4A023N7 Measurement of Cardiac Sampling and Pressure, Left Heart, Percutaneous Approach (ICD-10-PCS; 2024-03-29)
PROC: 027034Z Dilation of Coronary Artery, One Artery with Drug-eluting Intraluminal Device, Percutaneous Approach (ICD-10-PCS; 2024-03-29)
DX: I21.4 Non-ST elevation (NSTEMI) myocardial infarction (principal); I16.1 Hypertensive emergency; I10 Essential (primary) hypertension; E78.00 Pure hypercholesterolemia, unspecified; I25.10 Atherosclerotic heart disease of native coronary artery without angina pectoris; R73.9 Hyperglycemia, unspecified; Z79.899 Other long term (current) drug therapy; Z82.49 Family history of ischemic heart disease and other diseases of the circulatory system
CPT/HCPCS: 71046; 80048; 80053; 80061; 83036; 84484; 85025; 85027; 85347; 85730; 93005; 93306; 93458; 96374; 99285; C1725; C1874; C1894; C9600; Q9967

== ENCOUNTER 2024-05-24 15:24 | Outpatient (RCR) | payer BC, SELFPAY | END 2024-05-24 23:59 | disposition home or self-care (01) | LOC: CRHB 15:24 | PROVIDERS: ATTENDING PHYSICIAN Internal Medicine Cardiovascular Disease; FAMILY PHYSICIAN Family Medicine | DX: I25.2 Old myocardial infarction (principal); I25.10 Atherosclerotic heart disease of native coronary artery without angina pectoris (principal); Z95.5 Presence of coronary angioplasty implant and graft | CPT/HCPCS: 93797; 93798 ==

== ENCOUNTER 2024-06-23 16:47 | Outpatient (RCR) | payer BC, SELFPAY | END 2024-06-23 23:59 | disposition home or self-care (01) | LOC: CRHB 16:47 | PROVIDERS: ATTENDING PHYSICIAN Internal Medicine Cardiovascular Disease; FAMILY PHYSICIAN Family Medicine | DX: I25.2 Old myocardial infarction (principal); I21.4 Non-ST elevation (NSTEMI) myocardial infarction (principal); I25.10 Atherosclerotic heart disease of native coronary artery without angina pectoris (principal); Z95.5 Presence of coronary angioplasty implant and graft | CPT/HCPCS: 93798 ==

== ENCOUNTER 2024-07-24 15:28 | Outpatient (RCR) | payer BC, SELFPAY | END 2024-07-24 23:59 | disposition home or self-care (01) | LOC: CRHB 15:28 | PROVIDERS: ATTENDING PHYSICIAN Internal Medicine Cardiovascular Disease; FAMILY PHYSICIAN Family Medicine | DX: I25.2 Old myocardial infarction (principal); I25.10 Atherosclerotic heart disease of native coronary artery without angina pectoris (principal); I21.4 Non-ST elevation (NSTEMI) myocardial infarction (principal); Z95.5 Presence of coronary angioplasty implant and graft | CPT/HCPCS: 93797; 93798; G0422 ==

== ENCOUNTER 2024-08-04 16:52 | Outpatient (RCR) | payer BC, SELFPAY | END 2024-08-04 16:59 | disposition home or self-care (01) | LOC: CRHB 16:52 | PROVIDERS: ATTENDING PHYSICIAN Internal Medicine Cardiovascular Disease; FAMILY PHYSICIAN Family Medicine | DX: I25.10 Atherosclerotic heart disease of native coronary artery without angina pectoris (principal); I21.4 Non-ST elevation (NSTEMI) myocardial infarction (principal); Z95.5 Presence of coronary angioplasty implant and graft; I25.2 Old myocardial infarction | CPT/HCPCS: 93797; 93798 ==